=== PATIENT | male | born 1950 | race Caucasian/White ===

== ENCOUNTER 2020-04-22 06:50 | Day surgery (SDC) | payer BC ==
[~2020-04-22 06:50] MED LIST: Dextrose 5%-0.45% NaCl 1,000 ML IV SCH; Midazolam 1 MG/ML 2 ML SDV ONE; Sodium Chloride 0.9% 10 ML Syringe FLUSH PRN; fentaNYL 100 MCG/2 ML SDV ONE
[2020-04-22] MEDS ORDERED: fentaNYL 100 MCG/2 ML SDV IV ONE ×3 (06:51→08:11)
[2020-04-22] MEDS ORDERED: Midazolam 1 MG/ML 2 ML SDV IV ONE ×7 (06:51→08:17)
[2020-04-22 10:00] VITALS: PULSE 64
[2020-04-22 10:01] VITALS: BP 124/87
--- NOTE | 2020-04-22 16:14 | OR ---
DATE: 04/22/2020 PROCEDURE: Total colonoscopy and multiple pinch biopsies. INSTRUMENT USED: [id number]-H190DL Olympus video colonoscope. PREMEDICATIONS: Fentanyl 100 mcg intravenous, Versed 4 mg intravenous, nasal O2 cannula. The procedure was done under pulse oximetry, BP recording, and court recording monitor. INDICATION: The patient with status post right colon resection for Crohn disease. Colonoscopic examination is done for detection of any polypoid lesions and removal, assessment of Crohn disease activity, endoscopic hemostasis therapy if needed. DESCRIPTION OF PROCEDURE: Initial rectal exam showed external hemorrhoidal tags. Rigid anoscopy was normal. The colonoscope was passed with ease up to the area of surgical anastomosis. Photographs were taken of the area. Multiple pinch biopsies were taken from the surgical anastomotic site, and sent for histopathology. No bleeding was noted from any of the visualized areas at the commencement of the examination. The bowel preparation was found to be adequate, [place] scale 2 in all the regions, total score 6. No vascular ectasia. No large isolated ulcerations seen. No evidence of diffuse inflammatory bowel disease in the form of friability, contact bleeding, or ulcerations. No polyp or tumor mass identified. Photographs were taken of the surgical site. Probing the proximal sides of folds and flexures using adequate distention and clearing up the stool material, withdrawal of the scope was made. Multiple pinch biopsies were taken from the surgical anastomotic site, transverse colon, descending colon, as well as rectosigmoid and sent for histopathology. No bleeding was noted from any of the visualized areas at the completion of examination. IMPRESSION: 1. External hemorrhoids. 2. Status post right colon surgery. The patient tolerated the procedure well. [facility] /[id number]
== END 2020-04-22 09:49 | disposition home or self-care (01) ==
LOC: DL.ENDO 06:50
PROVIDERS: ATTEND Internal Medicine Gastroenterology
DX: Q43.8 Other specified congenital malformations of intestine (principal); K50.90 Crohn's disease, unspecified, without complications; K64.4 Residual hemorrhoidal skin tags; K21.9 Gastro-esophageal reflux disease without esophagitis; Z90.49 Acquired absence of other specified parts of digestive tract; Z98.0 Intestinal bypass and anastomosis status
CPT/HCPCS: 45380; J2250; J3010; J7042

== ENCOUNTER 2025-04-10 05:24 | Day surgery (SDC) | payer MEDICARE ==
[2025-04-10] MEDS ORDERED: Propofol 200 MG/20 ML SDV IV ONE ×2 (05:25→06:28)
[2025-04-10] MEDS ORDERED: Benzocaine 20% Topical Spray UD MUCMEM ONE (05:25)
[2025-04-10] MEDS ORDERED: Lactated Ringers 1,000 ML IV ONE (05:25)
[2025-04-10] MEDS: Lactated Ringers 1,000 ML IV SCH (06:01)
[2025-04-10] MEDS ORDERED: Benzocaine 20% Topical Spray UD ONE (06:03)
[2025-04-10] MEDS ORDERED: Propofol 200 MG/20 ML SDV ONE (06:03)
[2025-04-10 07:07] VITALS: BP 120/68; PULSE 57
[2025-04-12] MEDS ORDERED: Propofol 200 MG/20 ML SDV IV ONE (06:28)
== END 2025-04-10 08:03 | disposition home or self-care (01) ==
LOC: DL.ENDO 05:24
PROVIDERS: ATTEND Internal Medicine Gastroenterology
DX: K29.50 Unspecified chronic gastritis without bleeding (principal); K50.90 Crohn's disease, unspecified, without complications; D50.9 Iron deficiency anemia, unspecified; Z79.899 Other long term (current) drug therapy
CPT/HCPCS: 43239; 88305; 88342; A9270; J2704; J7120; 00731; 99100

== ENCOUNTER 2025-04-12 05:42 | Day surgery (SDC) | payer MEDICARE ==
[2025-04-12] MEDS: Lactated Ringers 1,000 ML IV SCH (06:18)
[2025-04-12] MEDS ORDERED: Propofol 200 MG/20 ML SDV ONE (06:27)
[2025-04-12 07:42] VITALS: PULSE 60
[2025-04-12 08:04] VITALS: BP 129/73
== END 2025-04-12 08:15 | disposition home or self-care (01) ==
LOC: DL.ENDO 05:42
PROVIDERS: ATTEND Internal Medicine Gastroenterology
DX: K57.30 Diverticulosis of large intestine without perforation or abscess without bleeding (principal); K50.00 Crohn's disease of small intestine without complications; K52.9 Noninfective gastroenteritis and colitis, unspecified; D50.9 Iron deficiency anemia, unspecified
CPT/HCPCS: 00811; 45380; 88305; 99100; J7120